=== PATIENT | female | born 1960 | race Caucasian/White ===

== ENCOUNTER 2024-12-05 03:09 | Inpatient (IN) | payer OTHER ==
[~2024-12-05] VITALS: Ht 160 cm; Wt 69.5 kg
[2024-12-05] VITALS (41 sets, daily range): BP systolic 95–128; BP diastolic 24–53; PULSE 75–94; RESP 13–24; TEMP 98.9–100.9; O2SAT 89–98
--- NOTE | 2024-12-05 03:32 | ECG ---
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
--- NOTE | 2024-12-05 03:59 | ED.PDOC ---
History of Present Illness HPI Comments 64 year old female presents to the ED via EMS with a chief complaint of generalized weakness onset 1 day. Per EMS, patient has been experiencing generalized weakness for the past day, was walking to the bathroom when she experienced a near syncopal episode, was assisted to the ground by and 911 was called. She was treated for c. diff, finished antibiotics 10 days ago, is still experiencing abdominal pain as well as diarrhea. She continues to take her blood pressure medication. reports blood pressure has been low at home. Upon EMS arrival BP was 88/55, NS 500 ccs IV was given improved BP to 105/75, blood sugar was 122, O2 sat was 88-90% RA, placed to 2L and O2 improved to 98%. PMHx CVA, HTN, HLD, ovarian and lung cancer. No other symptoms or modifying factors present at this time. Chief Complaint: General Weakness Time Seen by MD: 03:30 Reviewed Notes: Medications, Allergies Allergies: Coded Allergies: NO KNOWN ALLERGIES (Unverified , 12/05/24) Home Meds Reported Medications Montelukast Sodium (MONTELUKAST SODIUM) 10 Mg Tab, 1 TAB PO DAILY 12/05/24 Losartan Potassium (Losartan Potassium) 25 Mg Tab, 1 TAB PO DAILY 12/05/24 Amlodipine Besylate (Amlodipine Besylate) 2.5 Mg Tab, 1 TAB PO DAILY 12/05/24 Famotidine (Famotidine) 40 Mg Tab, 1 TAB PO BID 12/05/24 Gabapentin (Gabapentin) 300 Mg Cap, CAP PO 12/05/24 Warfarin Sodium (Warfarin Sodium) 2.5 Mg Tab, TAB PO 12/05/24 Rosuvastatin Calcium (Rosuvastatin Calcium) 5 Mg Tab, 1 TAB PO DAILY 12/05/24 Information Source: Patient, Emergency Med Personnel Mode of Arrival: EMS Severity: Moderate Duration: Since onset Prehospital treatment: IVF, Oxygen Vital Signs Vital Signs Date Time Temp Pulse Resp B/P (MAP) Pulse Ox O2 Delivery O2 Flow Rate FiO2 12/05/24 10:00 119/55 12/05/24 10:00 99.0 80 20 96 99.0 12/05/24 08:00 Nasal Cannula* 2 28 Physical Exam General: Awake,lethargic. NAD Skin: Skin in warm, dry and intact. Appropriate color for ethnicity. HEENT: The head is normocephalic and atraumatic. Conjunctivae are clear without exudates or hemorrhage. Sclera is non-icteric. EOM are intact. No signs of nystagmus. Eyelids are normal in appearance without swelling or lesions. Oral mucosa is pink and moist Neck: The neck is supple with normal range of motion. No JVD. Cardiac: Heart rate and rhythm are normal. No murmurs, gallops, or rubs are auscultated. Respiratory: No signs of respiratory distress. Lung sounds are clear in all lobes bilaterally without rales, rhonchi, or wheezes. Abdominal: Abdomen is soft, Generally-tender without distention. Bowel sounds are present and normoactive in all four quadrants. Extremities: Upper and lower extremities are atraumatic in appearance without deformity or edema. Review of Systems: REVIEW OF SYSTEMS: No fever, no chills, or fatigue HEENT: No sore throat, no earache, no congestion, no neck pain. Cardiac: No chest pain. No palpitations. Lungs: No shortness of breath, no cough. GI: No nausea, no vomiting, no diarrhea, no constipation, no abdominal pain : No dysuria, frequency, or urgency. No hematuria. Musculoskeletal: No joint pain , no joint swelling, no extremity edema. Skin: No rash, no itching. Neuro: No headache, no dizziness, no weakness Past Medical History PAST MEDICAL HISTORY: Cancer (ovarian, lung), CVA, High Lipids, HTN Surgical History: Denies all surgeries BEVERAGE HOST History: No Pertinent BEVERAGE HOST History Family History Family History: Reviewed,noncontributory to illness, No family hx of Cancer, No family hx of DM, No family hx of Heart mega, No family hx of HTN, No family hx ofKidney mega, No family hx of Liver mega, No family hx of Lung mega, No family hx of Stroke Social History Smoker: Non-Smoker Alcohol: Denies ETOH Use Drugs: Denies Drug Use Lives In: Home Was a procedure done? Was a procedure done?: No EKG EKG : Pulse Rate (adult): 202 Cardiac Rhythm: NSR (89 bpm) Differential Dx Considerations may include: Differential diagnoses considered include but are not limited to hypovolemia, vasovagal, cardiac structural disease, arrhythmia, acute coronary syndrome, orthostasis, pulmonary embolism, dissection, seizure, basilar stroke, other. X-Ray, Labs, Meds, VS Vital Signs Date Time Temp Pulse Resp B/P (MAP) Pulse Ox O2 Delivery O2 Flow Rate FiO2 12/05/24 10:00 119/55 12/05/24 10:00 99.0 80 20 119/55 (76) 96 99.0 12/05/24 09:45 81 20 118/49 (72) 98 12/05/24 09:30 88 20 106/48 (67) 96 12/05/24 09:15 87 20 106/42 (63) 95 12/05/24 09:00 89 20 103/47 (65) 96 12/05/24 09:00 103/47 12/05/24 08:45 84 18 101/44 (63) 96 12/05/24 08:30 84 19 104/46 (65) 98 12/05/24 08:15 85 18 91/37 (55) 95 12/05/24 08:00 90 19 97 Nasal Cannula* 2 28 12/05/24 08:00 99.7 90 19 111/52 (71) 97 99.7 12/05/24 08:00 87 12/05/24 08:00 111/52 12/05/24 07:45 85 19 102/38 (59) 98 12/05/24 07:30 85 19 125/43 (70) 99 12/05/24 07:00 127/43 12/05/24 06:40 93/43 12/05/24 06:35 91/39 12/05/24 06:30 83/40 12/05/24 06:30 86 18 91/39 (56) 98 12/05/24 06:17 95 18 81/47 (58) 97 12/05/24 05:00 90 14 95/44 (61) 97 12/05/24 04:45 83 18 96/40 (58) 97 12/05/24 04:30 90 17 93/38 (56) 96 12/05/24 04:15 84 17 88/34 (52) 94 12/05/24 04:10 85 95 Nasal Cannula* 2 28 12/05/24 04:05 98.9 85 18 91/43 (59) 95 98.9 12/05/24 03:59 202 12/05/24 03:24 89 12/05/24 03:20 97.7 82 18 100/47 (64) 96 97.7 Lab Test 12/05/24 07:00 12/05/24 04:51 12/05/24 03:57 12/05/24 03:56 Range/Units Troponin I High Sensitivity 8 6 6 </=34 ng/L White Blood Count 12.5 H 4.4-10.8 10^3/uL Red Blood Count 3.39 L 4.0-5.20 10^6/uL Hemoglobin 10.5 L 12.2-16.2 g/dL Hematocrit 31.2 L 36.0-46.0 % Mean Corpuscular Volume 92.1 80.0-100.0 fL Mean Corpuscular Hemoglobin 30.9 28.0-32.0 pg Mean Corpuscular Hemoglobin Concent 33.6 32.0-36.0 g/dL Red Cell Distribution Width 16.8 H 11.8-14.3 % Platelet Count 235 140-450 10^3/uL Mean Platelet Volume 8.2 6.9-10.8 fL Neutrophils (%) (Auto) 79.1 37.0-80.0 % Lymphocytes (%) (Auto) 9.6 L 10.0-50.0 % Monocytes (%) (Auto) 11.0 0.0-12.0 % Eosinophils (%) (Auto) 0.3 0.0-7.0 % Basophils (%) (Auto) 0.0 0.0-2.0 % Neutrophils # (Auto) 9.9 H 1.6-8.6 10 ^3/uL Lymphocytes # (Auto) 1.2 0.4-5.4 10 ^3/uL Monocytes # (Auto) 1.4 H 0-1.3 10 ^3/uL Eosinophils # (Auto) 0 0-0.8 10 ^3/uL Basophils # (Auto) 0 0-0.2 10 ^3/uL Nucleated Red Blood Cells 0.0 % Sodium Level 140 136-145 mmol/L Potassium Level 3.4 L 3.5-5.1 mmol/L Chloride Level 106 98-107 mmol/L Carbon Dioxide Level 25 20-31 mmol/L Anion Gap 9 5-15 Blood Urea Nitrogen 14 9-23 mg/dL Creatinine 1.00 0.550-1.02 mg/dL Glomerular Filtration Rate Calc 62 >90 mL/min BUN/Creatinine Ratio 14.0 10.0-20.0 Serum Glucose 104 74-106 mg/dL Lactic Acid Level 1.0 0.4-2.0 mmol/L Calcium Level 8.8 8.7-10.4 mg/dL Magnesium Level 1.6 1.6-2.6 mg/dL Total Bilirubin 0.3 0.2-1.0 mg/dL Aspartate Amino Transferase (AST) 13 13-40 U/L Alanine Aminotransferase (ALT) 15 7-40 U/L Alkaline Phosphatase 126 H 46-116 U/L B-Type Natriuretic Peptide 38.53 0-100 pg/mL Total Protein 5.9 5.7-8.2 g/dL Albumin 3.8 3.2-4.8 g/dL Lipase 23 12-53 U/L Creatine Kinase 16 L 34-145 U/L Current Medications Medications (Trade) Dose Ordered Sig/Rene Route Start Time Stop Time Status Last Admin Sodium Chloride 500 ml @ 500 mls/hr Q1H ONCE IV 12/05/24 03:45 12/05/24 04:44 DC 12/05/24 04:14 Sodium Chloride 1,000 ml @ 1,000 mls/hr Q1H ONCE IV 12/05/24 05:00 12/05/24 05:59 DC 12/05/24 05:13 Sodium Chloride 1,000 ml @ 130 mls/hr Q7H42M ONCE IV 12/05/24 05:00 12/05/24 12:41 DC 12/05/24 05:00 Vancomycin HCl 200 ml @ 200 mls/hr ONCE ONCE IV 12/05/24 05:00 12/05/24 05:59 DC 12/05/24 05:31 Piperacillin Sod/ Tazobactam Sod 100 ml @ 100 mls/hr ONCE ONCE IV 12/05/24 05:15 12/05/24 06:14 DC 12/05/24 08:04 Norepinephrine Bitartrate 250 ml @ 3.75 mls/hr Q24H IV 12/05/24 05:40 12/05/24 06:30 Time of 1ST Reevaluation: 04:00 Reevaluation 1ST: Unchanged Patient Education/Counseling: Diagnosis, Treatment, Prognosis Family Education/Counseling: No Family Present Departure 1 Departure Time of Disposition: 06:00 Impression: Primary Impression: Hypotension Additional Impression: General weakness Disposition: 09 ADMITTED INPATIENT Condition: Serious Comments Treatment initiated in the emergency department. Patient is stabilized. Gary dobbs admitted for further treatment, evaluation and monitoring. Critical Care Note Critical Care Time?: No Stability Stability form required: No I personally scribed for CHEIKH REYES MD ([email or web address]) on 12/05/24 at 03:59. Electronically submitted by Jordyn Centeno ([email or web address]). CHEIKH REYES MD Dec 05, 2024 03:59
[2024-12-05 04:11] LABS: Basophils # (auto) 0 10 ^3/uL (0-0.2); Eosinophils # (auto) 0 10 ^3/uL (0-0.8); Eosinophils % (auto) 0.3 % (0.0-7.0); Hematocrit 31.2 % (36.0-46.0); Hemoglobin 10.5 g/dL (12.2-16.2); Lymphocytes # (auto) 1.2 10 ^3/uL (0.4-5.4); Lymphocytes % (auto) 9.6 % (10.0-50.0); Mean Corpuscular Hemoglobin 30.9 pg (28.0-32.0); Mean Corpuscular Hgb Conc. 33.6 g/dL (32.0-36.0); Mean Corpuscular Volume 92.1 fL (80.0-100.0); Monocytes # (auto) 1.4 10 ^3/uL (0-1.3); Neutrophils # (auto) 9.9 10 ^3/uL (1.6-8.6); Neutrophils % (auto) 79.1 % (37.0-80.0); Platelet Count (auto) 235 10^3/uL (140-450); Red Blood Cells 3.39 10^6/uL (4.0-5.20); Red Cell Distribution Width 16.8 % (11.8-14.3); White Blood Cell 12.5 10^3/uL (4.4-10.8)
[2024-12-05] MEDS: SODIUM CHLORIDE 0.9% 500 ML IV ONE (04:14)
--- NOTE | 2024-12-05 04:25 | DVH ---
EXAM: XY CHEST XRAY 1 VIEW HISTORY: Generalized weakness COMPARISON: None TECHNIQUE: Portable AP view of the chest was performed. FINDINGS: Head and neck tissues partially obscure the right lung apex. Lung volumes are low. No pneumothorax, c onsolidative infiltrates, or pulmonary edema. The heart is not enlarged. IMPRESSION: No acute intrathoracic process.
[2024-12-05 04:32] LABS: Alanine Aminotransferase 15 U/L (7-40); Albumin 3.8 g/dL (3.2-4.8); Anion Gap 9 (5-15); Aspartate Aminotransferase 13 U/L (13-40); Bilirubin, Total 0.3 mg/dL (0.2-1.0); Blood Urea Nitrogen 14 mg/dL (9-23); Calcium 8.8 mg/dL (8.7-10.4); Carbon Dioxide 25 mmol/L (20-31); Chloride 106 mmol/L (98-107); Glucose 104 mg/dL (74-106); Lipase 23 U/L (12-53); Sodium 140 mmol/L (136-145); Total Protein 5.9 g/dL (5.7-8.2)
[2024-12-05 04:36] LABS: Alkaline Phosphatase 126 U/L (46-116); Magnesium 1.6 mg/dL (1.6-2.6); Potassium 3.4 mmol/L (3.5-5.1)
[2024-12-05] MEDS: SODIUM CHLORIDE 0.9% 1,000 ML IV ONE ×2 (05:00→05:13)
[2024-12-05] MEDS ORDERED: cefTRIAXone 1GM/50ML D5W 50 ML IV ONE (05:00)
[2024-12-05] MEDS: VANCOMYCIN 1GM/200ML PM 200 ML IV ONE (05:31)
[2024-12-05] MEDS: NOREPINEPHRINE 8 MG/250ML KIT 250 ML IV SCH (06:30)
[2024-12-05] MEDS: IOHEXOL 300 MG/ML 100ML BOTTLE IJ ONE (06:31)
--- NOTE | 2024-12-05 06:44 | DVH ---
EXAM: CT Abdomen and Pelvis With Intravenous Contrast CLINICAL INDICATION: Abdominal pain, diarrhea, history C diff TECHNIQUE: Axial computed tomography images of the abdomen and pelvis with intravenous contrast. is CT exam was performed using one or more of the following dose reduction techniques: automated exp osure control, adjustment of the mA and/or kV according to patient size, and/or use of iterative migel nstruction technique. CONTRAST: COMPARISON: None FINDINGS: ARTIFACTS: Beam hardening artifacts. LUNG BASES: Unremarkable. No mass. No consolidation. MEDIASTINUM: Small esophageal hiatal hernia. ABDOMEN: LIVER: Fatty infiltration of the liver. GALLBLADDER AND BILE DUCTS: Unremarkable. No calcified stones. No ductal dilation. PANCREAS: Unremarkable. No mass. No ductal dilation. SPLEEN: Unremarkable. No splenomegaly. ADRENALS: Unremarkable. No mass. KIDNEYS AND URETERS: Unremarkable. No solid mass. No hydronephrosis. STOMACH AND BOWEL: Mild fat stranding of the descending colon could be colitis. Fecal retention in the colon consistent with constipation. No bowel obstruction pneumoperitoneum. PELVIS: APPENDIX: No findings to suggest acute appendicitis. BLADDER: Unremarkable. No mass. REPRODUCTIVE: Unremarkable as visualized. ABDOMEN and PELVIS: INTRAPERITONEAL SPACE: See above. BONES/JOINTS: No acute fracture. No dislocation. SOFT TISSUES: Unremarkable. VASCULATURE: Scattered calcified atherosclerotic disease of aorta. No abdominal aortic aneurysm. LYMPH NODES: Unremarkable. No enlarged lymph nodes. OTHER FINDINGS: . . IMPRESSION: 1. Mild fat stranding of the descending colon could be colitis. 2. Small esophageal hiatal hernia. 3. Fecal retention in the colon consistent with constipation.
[2024-12-05] MEDS: PIPERACILLIN-TAZOB 3.375GM 100 ML IV ONE (08:04)
[2024-12-05] MEDS ORDERED: NITROGLYCERIN 0.4 MG SL TAB SL PRN (10:30)
[2024-12-05] MEDS ORDERED: ONDANSETRON HCL 4 MG/2 ML VIAL IV PRN (10:30)
[2024-12-05] MEDS ORDERED: VANCOMYCIN PER PHARMACY 0 MG IV SCH (10:30)
[2024-12-05] MEDS: SODIUM CHLORIDE 0.9% 1,000 ML IV SCH (10:30)
[2024-12-05] MEDS ORDERED: MORPHINE SULFATE INJ 2 MG/ml SYRG IV PRN (10:30)
[2024-12-05] MEDS ORDERED: WARF-110 PO (10:32)
[2024-12-05] MEDS ORDERED: FAMO40TA7 PO (10:32)
[2024-12-05] MEDS ORDERED: ROSU5TAB24 PO (10:32)
[2024-12-05] MEDS ORDERED: LOS25T PO (10:32)
[2024-12-05] MEDS ORDERED: AMLO1TAB21 PO (10:32)
[2024-12-05] MEDS ORDERED: GABA-1250 PO (10:32)
[2024-12-05] MEDS ORDERED: MONT-8 PO (10:33)
--- NOTE | 2024-12-05 10:42 | DVHHP2 ---
History of Present Illness Reason for Visit: Generalized weakness with hypotension History of Present Illness Spring Mars is a 64-year-old female with past medical history of hypertension, hyperlipidemia, CVA with left-sided weakness, ovarian cancer, lung cancer with right lobectomy in 2020 of May who presents to the ED with generalized weakness, hypotension, abdominal pain, and diarrhea. Patient reports that she finished her course of vancomycin p.o. for her C diff. Per RN at bedside, patient's spouse stated that they had given her blood pressure medications but did not check her blood pressure prior to her taking the medications. Patient denies any chest pain, shortness of breath, fever, chills, urinary symptoms, recent sick contacts, recent ingestion of spoiled food, or recent travels. Patient states that she was having diarrhea but resolved. Cardiovascular: HTN, hyperipidemia PHYSICIST SOLID EARTH: CVA Past Medical History Ovarian cancer Lung cancer Past Surgical History: Other (Right lobectomy May 2021) Family History: None Smoke: No ALCOHOL: none Drugs: None Lives: with Family Domestic Violence: Neg Review of Systems Constitutional: Yes: Weakness Gastrointestinal: Abdominal Pain, Diarrhea Allergies: Coded Allergies: NO KNOWN ALLERGIES (Unverified , 12/05/24) Medications Current Medications Medications Dose Ordered Sig/Rene Route Start Time Stop Time Status Last Admin Dose Admin Norepinephrine Bitartrate 250 ml @ 3.75 mls/hr Q24H IV 12/05/24 05:40 12/05/24 06:30 3.75 MLS/HR Sodium Chloride 1,000 ml @ 100 mls/hr Q10H IV 12/05/24 10:30 UNV Ondansetron HCl 4 mg Q4HP PRN IV 12/05/24 10:30 UNV Acetaminophen 650 mg Q6HP PRN PO 12/05/24 10:30 UNV Nitroglycerin 0.4 mg Q5MINP PRN SL 12/05/24 10:30 UNV Morphine Sulfate 2 mg Q30M PRN IV 12/05/24 10:30 UNV Vancomycin HCl 0 ml @ 0 mls/hr UD IV 12/05/24 10:30 UNV Piperacillin Sod/ Tazobactam Sod 100 ml @ 25 mls/hr Q8HR IV 12/05/24 14:00 UNV Exam Vital Signs Vital Signs Date Time Temp Pulse Resp B/P (MAP) Pulse Ox O2 Delivery O2 Flow Rate FiO2 12/05/24 10:00 99.0 80 20 119/55 (76) 96 99.0 12/05/24 08:00 Nasal Cannula* 2 28 General Appearance: Alert, Oriented X3, Cooperative, mild distress HEENT: Atraumatic, PERRLA, EOMI, Mucous membr. moist/pink Respiratory: Normal air movement Cardiovascular: Regular rate, Normal S1, Normal S2, No murmurs Abdominal: Normal bowel sounds, Soft, No tenderness, No hepatospenomegaly, No masses Extremities: No clubbing, No cyanosis, Normal pulses Skin: No significant lesion Neuro: Normal speech, Normal tone, Sensation intact Psych/Mental Status: Mental status NL, Mood NL Labs/Xrays Labs Test 12/05/24 07:00 12/05/24 03:57 12/05/24 03:56 Range/Units Troponin I High Sensitivity 8 </=34 ng/L White Blood Count 12.5 H 4.4-10.8 10^3/uL Red Blood Count 3.39 L 4.0-5.20 10^6/uL Hemoglobin 10.5 L 12.2-16.2 g/dL Hematocrit 31.2 L 36.0-46.0 % Mean Corpuscular Volume 92.1 80.0-100.0 fL Mean Corpuscular Hemoglobin 30.9 28.0-32.0 pg Mean Corpuscular Hemoglobin Concent 33.6 32.0-36.0 g/dL Red Cell Distribution Width 16.8 H 11.8-14.3 % Platelet Count 235 140-450 10^3/uL Mean Platelet Volume 8.2 6.9-10.8 fL Neutrophils (%) (Auto) 79.1 37.0-80.0 % Lymphocytes (%) (Auto) 9.6 L 10.0-50.0 % Monocytes (%) (Auto) 11.0 0.0-12.0 % Eosinophils (%) (Auto) 0.3 0.0-7.0 % Basophils (%) (Auto) 0.0 0.0-2.0 % Neutrophils # (Auto) 9.9 H 1.6-8.6 10 ^3/uL Lymphocytes # (Auto) 1.2 0.4-5.4 10 ^3/uL Monocytes # (Auto) 1.4 H 0-1.3 10 ^3/uL Eosinophils # (Auto) 0 0-0.8 10 ^3/uL Basophils # (Auto) 0 0-0.2 10 ^3/uL Nucleated Red Blood Cells 0.0 % Sodium Level 140 136-145 mmol/L Potassium Level 3.4 L 3.5-5.1 mmol/L Chloride Level 106 98-107 mmol/L Carbon Dioxide Level 25 20-31 mmol/L Anion Gap 9 5-15 Blood Urea Nitrogen 14 9-23 mg/dL Creatinine 1.00 0.550-1.02 mg/dL Glomerular Filtration Rate Calc 62 >90 mL/min BUN/Creatinine Ratio 14.0 10.0-20.0 Serum Glucose 104 74-106 mg/dL Lactic Acid Level 1.0 0.4-2.0 mmol/L Calcium Level 8.8 8.7-10.4 mg/dL Magnesium Level 1.6 1.6-2.6 mg/dL Total Bilirubin 0.3 0.2-1.0 mg/dL Aspartate Amino Transferase (AST) 13 13-40 U/L Alanine Aminotransferase (ALT) 15 7-40 U/L Alkaline Phosphatase 126 H 46-116 U/L B-Type Natriuretic Peptide 38.53 0-100 pg/mL Total Protein 5.9 5.7-8.2 g/dL Albumin 3.8 3.2-4.8 g/dL Lipase 23 12-53 U/L Creatine Kinase 16 L 34-145 U/L EXAM: CT Abdomen and Pelvis With Intravenous Contrast CLINICAL INDICATION: Abdominal pain, diarrhea, history C diff TECHNIQUE: Axial computed tomography images of the abdomen and pelvis with intravenous contrast. This CT exam was performed using one or more of the following dose reduction techniques: automated exposure control, adjustment of the mA and/or kV according to patient size, and/or use of iterative reconstruction technique. CONTRAST: COMPARISON: None FINDINGS: ARTIFACTS: Beam hardening artifacts. LUNG BASES: Unremarkable. No mass. No consolidation. MEDIASTINUM: Small esophageal hiatal hernia. ABDOMEN: LIVER: Fatty infiltration of the liver. GALLBLADDER AND BILE DUCTS: Unremarkable. No calcified stones. No ductal dilation. PANCREAS: Unremarkable. No mass. No ductal dilation. SPLEEN: Unremarkable. No splenomegaly. ADRENALS: Unremarkable. No mass. KIDNEYS AND URETERS: Unremarkable. No solid mass. No hydronephrosis. STOMACH AND BOWEL: Mild fat stranding of the descending colon could be colit is. Fecal retention in the colon consistent with constipation. No bowel obstruction pneumoperitoneum. PELVIS: APPENDIX: No findings to suggest acute appendicitis. BLADDER: Unremarkable. No mass. REPRODUCTIVE: Unremarkable as visualized. ABDOMEN and PELVIS: INTRAPERITONEAL SPACE: See above. BONES/JOINTS: No acute fracture. No dislocation. SOFT TISSUES: Unremarkable. VASCULATURE: Scattered calcified atherosclerotic disease of aorta. No abdominal aortic aneurysm. LYMPH NODES: Unremarkable. No enlarged lymph nodes. OTHER FINDINGS: . . IMPRESSION: 1. Mild fat stranding of the descending colon could be colitis. 2. Small esophageal hiatal hernia. 3. Fecal retention in the colon consistent with constipation. EXAM: XY CHEST XRAY 1 VIEW HISTORY: Generalized weakness COMPARISON: None TECHNIQUE: Portable AP view of the chest was performed. FINDINGS: Head and neck tissues partially obscure the right lung apex. Lung volumes are low. No pneumothorax, consolidative infiltrates, or pulmonary edema. The heart is not enlarged. IMPRESSION: No acute intrathoracic process. Assessment/Plan Assessment/Plan Assessment Leukocytosis rule out sepsis Anemia Hypokalemia Hypovolemic shock Colitis Small esophageal hiatal hernia Constipation History of hypertension History of hyperlipidemia History of CVA with left-sided deficits on warfarin History of ovarian cancer History of lung cancer History of right lobectomy in May of 2021 Plan Admit to ICU Vasopressor Keep maps greater than 65 IV antibiotics-Zosyn plus vancomycin NS 2.5 L given in ED CK CT abdomen and pelvis Troponin negative x3 Chest x-ray noted UA COVID test Test Mag level Mag Lactic BNP EKG Antiemetics Pain management Coumadin protocol Home medications reconciled DVT prophylaxis-patient on warfarin PUD prophylaxis-famotidine, continue home medication Discussed plan of care with patient and nurse Patient takes tagrisso and non formulary with pharmacy Plan discussed with: Patient My Orders Orders - ALAINA MARTINEZ JUNIOR BRAND MANAGER Procedure Category Date Status Time Admit ADMIT 12/05/24 Transmitted 10:23 Allergies MICK 12/05/24 In Process 10:23 Code Status CODE 12/05/24 Transmitted 10:23 Sodium Chloride 0.9% PHA 12/05/24 Logged 10:30 Ondansetron Hcl PHA 12/05/24 Logged (Zofran) 10:30 Complete Blood Count LAB 12/06/24 Verified 04:00 Comprehensive LAB 12/06/24 Verified Metabolic Panel 04:00 Cardiac DIET 12/05/24 Transmitted Diet-2gna,Lofat,Lochol Lunch Acetaminophen Tablet PHA 12/05/24 Logged (Tylenol Tablet) 10:30 Nitroglycerin PHA 12/05/24 Logged Sublingual (Ntrostat 10:30 Morphine Sulfate PHA 12/05/24 Logged Injection 10:30 Stat Ekg For Chest MICK 12/05/24 In Process Pain 10:23 Notify Of Changes MICK 12/05/24 In Process From Base 10:23 Nylon Mender For MICK 12/05/24 In Process 24 Hours 10:23 Emergency Dysrhythmia MICK 12/05/24 In Process Protocol 10:23 Rhythm Strips Once MICK 12/05/24 In Process Every Shift 10:23 Oxygen By Nasal RT 12/05/24 Transmitted Cannula 10:23 Potassium Er Tablet PHA 12/05/24 Logged (Klor-Con Tablet) 10:30 Vancomycin Per PHA 12/05/24 Logged Pharmacy 10:30 Piperacillin-Tazob PHA 12/05/24 Logged 3.375gm (Zosyn 3.375g 14:00 Gabapentin Capsule PHA 12/05/24 Verified (Neurontin Capsule) 14:00 Losartan Tablet PHA 12/06/24 Verified (Cozaar Tablet) 10:00 Warfarin Sodium PHA 12/06/24 Verified (Coumadin) 10:00 (Nf) Amlodipine PHA 12/06/24 Verified Besylate 10:00 (Nf) Famotidine PHA 12/05/24 Verified 22:00 (Nf) Rosuvastatin PHA 12/06/24 Verified Calcium 10:00 Montelukast Tablet PHA 12/06/24 Verified (Singulair Tablet) 10:00 Date of Service: Dec 05, 2024 Billing Provider: ALAINA MARTINEZ Common Visit Codes: [id number] INP/OBS CARE (HIGH) ALAINA MARTINEZ JUNIOR BRAND MANAGER Dec 05, 2024 10:42
[2024-12-05 11:33] LABS: COVID19 ANTIGEN SOFIA FIA NEGATIVE (NEGATIVE); Rapid Influenza A Negative (Negative); Rapid Influenza B Negative (Negative)
[2024-12-05 12:03] LABS: Urine Bacteria None Seen /hpf (None Seen)
[2024-12-05 12:12] LABS: Urine Blood Negative /uL (Negative); Urine Clarity Clear (Clear); Urine Color Light-Yellow (Yellow); Urine Protein, UAD Negative (Negative); Urine Specific Gravity 1.031 (1.001-1.035); Urine Squamous Epithelial Cell None Seen /hpf (<5); Urine Urobilinogen Normal (Negative); Urine WBC 1 /HPF (0-5); Urine pH 5.5 (5.0-9.0)
[2024-12-05] MEDS: GABAPENTIN 300 MG CAP PO SCH (13:32)
[2024-12-05] MEDS: POTASSIUM CHL 20 Meq TABLET PO ONE (13:32)
[2024-12-05] MEDS: PIPERACILLIN-TAZOB 3.375GM 100 ML IV SCH (13:33)
[2024-12-05 13:59] LABS: INR 2.75 (0.9-1.15); Prothrombin Time 26.4 sec (9.3-11.8)
[2024-12-05] MEDS: ACETAMINOPHEN 325 MG TAB PO PRN (15:36)
[2024-12-05] MEDS: WARFARIN SODIUM 2 MG TAB PO ONE (18:02)
[2024-12-05] MEDS: FAMOTIDINE 20 MG TAB PO SCH (21:10)
[2024-12-05] MEDS: VANCOMYCIN 1GM/200ML PM 200 ML IV SCH (21:10)
[2024-12-06] VITALS (107 sets, daily range): BP systolic 65–156; BP diastolic 29–70; PULSE 70–95; RESP 10–28; TEMP 98.2–100.5; O2SAT 87–100
[2024-12-06 04:28] LABS: Basophils # (auto) 0.1 10 ^3/uL (0-0.2); Basophils % (auto) 0.8 % (0.0-2.0); Eosinophils # (auto) 0.1 10 ^3/uL (0-0.8); Eosinophils % (auto) 0.6 % (0.0-7.0); Hematocrit 32.6 % (36.0-46.0); Hemoglobin 10.9 g/dL (12.2-16.2); Lymphocytes # (auto) 1.3 10 ^3/uL (0.4-5.4); Lymphocytes % (auto) 7.7 % (10.0-50.0); Mean Corpuscular Hemoglobin 30.7 pg (28.0-32.0); Mean Corpuscular Hgb Conc. 33.4 g/dL (32.0-36.0); Mean Corpuscular Volume 91.9 fL (80.0-100.0); Monocytes # (auto) 1.8 10 ^3/uL (0-1.3); Monocytes % (auto) 10.4 % (0.0-12.0); Neutrophils # (auto) 13.8 10 ^3/uL (1.6-8.6); Neutrophils % (auto) 80.5 % (37.0-80.0); Platelet Count (auto) 238 10^3/uL (140-450); Red Blood Cells 3.54 10^6/uL (4.0-5.20); Red Cell Distribution Width 16.6 % (11.8-14.3); White Blood Cell 17.1 10^3/uL (4.4-10.8)
[2024-12-06 04:52] LABS: Alanine Aminotransferase 14 U/L (7-40); Albumin 3.6 g/dL (3.2-4.8); Anion Gap 12 (5-15); Aspartate Aminotransferase 14 U/L (13-40); BUN/Creatinine Ratio 6.8 (10.0-20.0); Calcium 8.9 mg/dL (8.7-10.4); Glucose 99 mg/dL (74-106); Sodium 139 mmol/L (136-145)
[2024-12-06 04:53] LABS: Bilirubin, Total 0.6 mg/dL (0.2-1.0)
[2024-12-06 04:55] LABS: Partial Thromboplastin Time 64.3 SEC (24.5-34.5); Prothrombin Time 38.2 sec (9.3-11.8)
[2024-12-06 04:58] LABS: Alkaline Phosphatase 121 U/L (46-116); Blood Urea Nitrogen 5 mg/dL (9-23); Carbon Dioxide 19 mmol/L (20-31); Chloride 108 mmol/L (98-107); Magnesium 1.5 mg/dL (1.6-2.6); Total Protein 5.5 g/dL (5.7-8.2)
[2024-12-06 05:08] LABS: INR 4.15 (0.9-1.15)
[2024-12-06] MEDS: POTASSIUM EFFERVESENT TAB 25 MEQ PO ONE (06:57)
[2024-12-06] MEDS: MAGNESIUM SULFATE 1GM/100ML 100 ML IV ONE ×3 (06:57→17:21)
[2024-12-06] MEDS: MONTELUKAST SODIUM 10 MG TAB PO SCH (09:21)
--- NOTE | 2024-12-06 09:52 | DVHPN2 ---
Subjective Patient reporting history of diarrhea, completing course of p.o. vancomycin for C diff. Reviewed: Care Plan, H&P, Labs, Medications, Previous Orders, Radiology Changes from previous H/P or p: No Changes General: Per HPI Gastrointestinal: Abdominal Pain, Diarrhea Objective Vitals Vital Signs Date Time Temp Pulse Resp B/P (MAP) Pulse Ox O2 Delivery O2 Flow Rate FiO2 12/06/24 09:08 98.2 98.2 12/06/24 09:00 76 18 99 12/06/24 08:00 Nasal Cannula* 2 28 Intake/Output Intake and Output 12/06/24 07:00 Intake Total 3480.00 ml Output Total 3200 ml Balance 280.00 ml Intake Oral 300 ml IV Total 3180.00 ml Output Urine Total 3200 ml # Bowel Movements 2 General Appearance: Alert, Oriented X3, Cooperative, No acute distress HEENT: Atraumatic, PERRLA Lungs: Clear to auscultation, Normal air movement Cardiovascular: Normal S1, Normal S2 Abdomen: Normal bowel sounds, Soft, No tenderness, Other (Runs of paroxysmal atrial fibrillation) Musculoskeletal: Normal sensory function, Normal motor function Neuro: Normal gait, Normal speech Skin: Dry, Intact, Warm Psych/Mental Status: Mental status NL, Mood NL Medications Current Medications Medications Dose Ordered Sig/Rene Route Start Time Stop Time Status Last Admin Dose Admin Norepinephrine Bitartrate 250 ml @ 3.75 mls/hr Q24H IV 12/05/24 05:40 12/06/24 02:29 7.5 MLS/HR Ondansetron HCl 4 mg Q4HP PRN IV 12/05/24 10:30 Acetaminophen 650 mg Q6HP PRN PO 12/05/24 10:30 12/06/24 07:59 650 MG Nitroglycerin 0.4 mg Q5MINP PRN SL 12/05/24 10:30 Morphine Sulfate 2 mg Q30M PRN IV 12/05/24 10:30 Gabapentin 300 mg TID PO 12/05/24 14:00 12/06/24 05:34 300 MG Warfarin Sodium 2.5 mg DAILY PO 12/06/24 10:00 UNV Famotidine 40 mg BID PO 12/05/24 22:00 12/06/24 09:20 40 MG Atorvastatin Calcium 20 mg HS PO 12/06/24 22:00 Montelukast Sodium 10 mg DAILY PO 12/06/24 10:00 12/06/24 09:21 10 MG Warfarin Sodium RX PROTOCOL PER PHARMACY PO 12/05/24 13:30 Vancomycin HCl 200 ml @ 200 mls/hr Q16H IV 12/05/24 21:00 12/05/24 21:10 200 MLS/HR Metronidazole 100 ml @ 100 mls/hr Q8HR IV 12/06/24 14:00 UNV Vancomycin HCl 500 mg QID PO 12/06/24 12:00 UNV Saccharomyces Boulardii 250 mg BID PO 12/06/24 10:00 UNV Potassium Chloride/Sodium Chloride 1,000 ml @ 100 mls/hr Q10H IV 12/06/24 09:45 UNV Laboratory Results Laboratory Tests 12/06/24 03:50 Chemistry Test 12/06/24 03:50 Albumin 3.6 g/dL (3.2-4.8) Calcium Level 8.9 mg/dL (8.7-10.4) Magnesium Level 1.5 mg/dL (1.6-2.6) L Total Protein 5.5 g/dL (5.7-8.2) L Coagulation Test 12/05/24 13:36 12/06/24 03:50 Prothrombin Time 26.4 sec (9.3-11.8) H 38.2 sec (9.3-11.8) H Prothrombin Time INR 2.75 (0.9-1.15) H 4.15 (0.9-1.15) *H Activated Partial Thromboplast Time 53.0 SEC (24.5-34.5) H 64.3 SEC (24.5-34.5) H LFT Test 12/06/24 03:50 Alanine Aminotransferase (ALT) 14 U/L (7-40) Alkaline Phosphatase 121 U/L (46-116) H Aspartate Amino Transferase (AST) 14 U/L (13-40) Total Bilirubin 0.6 mg/dL (0.2-1.0) Urinalysis Test 12/05/24 12:02 Urine Color Light-yellow (Yellow) Urine Clarity Clear (Clear) Urine pH 5.5 (5.0-9.0) Urine Specific [place] 1.031 (1.001-1.035) Urine Protein Negative (Negative) Urine Ketones Negative (Negative) Urine Blood Negative /uL (Negative) Urine Nitrite Negative (Negative) Urine Bilirubin Negative (Negative) Urine Urobilinogen Normal mg/dL (Negative) Urine Leukocyte Esterase Negative /uL (Negative) Urine RBC <1 /hpf (0 - 4) Urine Microscopic WBC 1 /HPF (0-5) Urine Squamous Epithelial Cells None seen /hpf (<5) Urine Bacteria None seen /hpf (None Seen) Urine Glucose Normal mg/dL (Normal) Labs and/or images reviewed: Labs reviewed by me, Image(s) reviewed by me Assessment/Plan Assessment/Plan Impression: -sepsis secondary to probable colitis. Probable C diff colitis -septic shock -paroxysmal atrial fibrillation -history of CVA with current anticoagulation with Coumadin -history of lung cancer -dyslipidemia -acute hypoxic respiratory failure -hypomagnesemia -hypokalemia Plan: -events patient continues to be on norepinephrine drip, currently at 2 micrograms/minute. Patient also with electrolyte imbalance. Continues to have mucoid stools -change antibiotics to vancomycin 500 mg p.o. 4 times a day, IV Flagyl 500 mg 3 times a day. -Add Florastor 250 mg p.o. b.i.d. -potassium magnesium replacement -continue vasopressor therapy -normal saline bolus of 500 mL -change IV fluids to 0.9 normal saline with 40 mEq of potassium chloride at 100 mL/hour -repeat potassium magnesium today, a.m. labs -long discussion made with the patient, family was bedside. All questions answered. -given patient's paroxysmal atrial fibrillation, septic shock patient is unstable to transfer to [facility] Critical care time spent with patient discussing and formulating plan of care: 90 minutes. This does not include time spent performing procedures. This medical document was created using an electronic medical record system with [employer] dictation system. Although this document has been carefully reviewed, there may still be some phonetic and typographical errors. These areas are purely typographical due to imperfections of the software programs, and do not reflect any compromise in the patient's medical care. Plan discussed with: Patient, Spouse, Other (RN) My Orders Orders - SHAHIDA ROSS NP Procedure Category Date Status Time * Auto Bumper Mechanic CONS 12/06/24 Transmitted Consult Metronidazole PHA 12/06/24 Logged 500mg/100ml (Flagyl 14:00 Vancomycin Po PHA 12/06/24 Logged (Vancomycin 12:00 Florastor (S. PHA 12/06/24 Logged Reema) (Florastor) 10:00 Complete Blood Count LAB 12/07/24 Verified 04:00 Comprehensive LAB 12/07/24 Verified Metabolic Panel 04:00 Sod Chl 0.9%/ Kcl PHA 12/06/24 Logged 40meq 09:45 Sodium Chloride 0.9% PHA 12/06/24 Logged 09:45 Isolation Order ORDERS 12/06/24 Transmitted 09:42 Date of Service: Dec 06, 2024 Billing Provider: SHAHIDA ROSS NP Common Visit Codes: 21625-[id number] CARE 30-74 MIN, [id number] CARE-EACH +30MIN SHAHIDA ROSS NP Dec 06, 2024 09:52
[2024-12-06] MEDS ORDERED: LOSARTAN POTASSIUM 25 MG TAB PO SCH (10:00)
[2024-12-06] MEDS ORDERED: WARFARIN SODIUM 2.5 MG TAB PO SCH (10:00)
[2024-12-06] MEDS ORDERED: amLODIPine BESYLATE 5 MG TAB PO SCH (10:00)
[2024-12-06] MEDS: FLORASTOR (S. BOULARDII) 250 MG CAP PO SCH (10:57)
[2024-12-06] MEDS: SOD CHL 0.9%/ KCL 40MEQ 1,000 ML IV SCH (10:58)
[2024-12-06] MEDS: SODIUM CHLORIDE 0.9% 500 ML IV ONE (10:58)
[2024-12-06] MEDS ORDERED: VANCOMYCIN HCL 250 MG CAP PO SCH (12:00)
[2024-12-06] MEDS: VANCOMYCIN HCL 250 MG CAP PO SCH (13:14)
[2024-12-06 13:15] LABS: Potassium 3.7 mmol/L (3.5-5.1)
[2024-12-06 13:22] LABS: Magnesium 1.7 mg/dL (1.6-2.6)
[2024-12-06] MEDS: metroNIDAZOLE 500MG/100ML 100 ML IV SCH (14:50)
[2024-12-06] MEDS: KETOROLAC TROMETH 30 MG/ML 1ML VIAL IV ONE (18:19)
[2024-12-06] MEDS: ATORVASTATIN 20 MG TAB PO SCH (21:28)
[2024-12-07] VITALS (98 sets, daily range): BP systolic 95–152; BP diastolic 33–76; PULSE 64–91; RESP 11–34; TEMP 97.6–99.5; O2SAT 88–98
[2024-12-07 04:19] LABS: Basophils # (auto) 0.1 10 ^3/uL (0-0.2); Basophils % (auto) 0.3 % (0.0-2.0); Eosinophils # (auto) 0.3 10 ^3/uL (0-0.8); Eosinophils % (auto) 1.6 % (0.0-7.0); Hematocrit 35.8 % (36.0-46.0); Hemoglobin 11.6 g/dL (12.2-16.2); Lymphocytes # (auto) 1.6 10 ^3/uL (0.4-5.4); Lymphocytes % (auto) 8.9 % (10.0-50.0); Mean Corpuscular Hemoglobin 29.7 pg (28.0-32.0); Mean Corpuscular Hgb Conc. 32.3 g/dL (32.0-36.0); Monocytes # (auto) 1.7 10 ^3/uL (0-1.3); Monocytes % (auto) 9.6 % (0.0-12.0); Neutrophils # (auto) 14.2 10 ^3/uL (1.6-8.6); Neutrophils % (auto) 79.6 % (37.0-80.0); Platelet Count (auto) 292 10^3/uL (140-450); Red Cell Distribution Width 16.3 % (11.8-14.3); White Blood Cell 17.8 10^3/uL (4.4-10.8)
[2024-12-07 04:38] LABS: INR 3.93 (0.9-1.15); Partial Thromboplastin Time 66.9 SEC (24.5-34.5); Prothrombin Time 36.4 sec (9.3-11.8)
[2024-12-07 04:40] LABS: Alanine Aminotransferase 14 U/L (7-40); Albumin 3.6 g/dL (3.2-4.8); Anion Gap 13 (5-15); Aspartate Aminotransferase 14 U/L (13-40); Bilirubin, Total 0.3 mg/dL (0.2-1.0); Calcium 8.9 mg/dL (8.7-10.4); Glucose 89 mg/dL (74-106); Potassium 3.7 mmol/L (3.5-5.1); Sodium 141 mmol/L (136-145)
[2024-12-07 04:47] LABS: Alkaline Phosphatase 131 U/L (46-116); BUN/Creatinine Ratio 8.3 (10.0-20.0); Blood Urea Nitrogen < 5 mg/dL (9-23); Carbon Dioxide 19 mmol/L (20-31); Chloride 109 mmol/L (98-107); Total Protein 5.7 g/dL (5.7-8.2)
--- NOTE | 2024-12-07 09:58 | DVHPN2 ---
Subjective Patient reports that stools have decreased in frequency. Reviewed: Care Plan, H&P, Labs, Medications, Previous Orders, Radiology Changes from previous H/P or p: Changes General: Per HPI Gastrointestinal: Abdominal Pain, Diarrhea Objective Vitals Vital Signs Date Time Temp Pulse Resp B/P (MAP) Pulse Ox O2 Delivery O2 Flow Rate FiO2 12/07/24 08:00 78 12/07/24 08:00 18 94 Room Air* 0 21 12/07/24 06:45 127/49 (75) 12/07/24 04:00 98.1 98.1 Intake/Output Intake and Output 12/07/24 07:00 Intake Total 4000.00 ml Output Total 3300 ml Balance 700.00 ml Intake Oral 640 ml IV Total 3360.00 ml Output Urine Total 3300 ml # Bowel Movements 6 General Appearance: Alert, Oriented X3, Cooperative, No acute distress HEENT: Atraumatic, PERRLA Lungs: Clear to auscultation, Normal air movement Cardiovascular: Normal S1, Normal S2 Abdomen: Normal bowel sounds, Soft, No tenderness, Other (Runs of paroxysmal atrial fibrillation) Musculoskeletal: Normal sensory function, Normal motor function Neuro: Normal gait, Normal speech Skin: Dry, Intact, Warm Psych/Mental Status: Mental status NL, Mood NL Medications Current Medications Medications Dose Ordered Sig/Rene Route Start Time Stop Time Status Last Admin Dose Admin Norepinephrine Bitartrate 250 ml @ 3.75 mls/hr Q24H IV 12/05/24 05:40 12/07/24 06:03 11.25 MLS/HR Ondansetron HCl 4 mg Q4HP PRN IV 12/05/24 10:30 Acetaminophen 650 mg Q6HP PRN PO 12/05/24 10:30 12/07/24 06:07 650 MG Nitroglycerin 0.4 mg Q5MINP PRN SL 12/05/24 10:30 Morphine Sulfate 2 mg Q30M PRN IV 12/05/24 10:30 Gabapentin 300 mg TID PO 12/05/24 14:00 12/07/24 05:57 300 MG Warfarin Sodium 2.5 mg DAILY PO 12/06/24 10:00 UNV Famotidine 40 mg BID PO 12/05/24 22:00 12/06/24 21:28 40 MG Atorvastatin Calcium 20 mg HS PO 12/06/24 22:00 12/06/24 21:28 20 MG Montelukast Sodium 10 mg DAILY PO 12/06/24 10:00 12/06/24 09:21 10 MG Warfarin Sodium RX PROTOCOL PER PHARMACY PO 12/05/24 13:30 Metronidazole 100 ml @ 100 mls/hr Q8HR IV 12/06/24 14:00 12/07/24 05:56 100 MLS/HR Saccharomyces Boulardii 250 mg BID PO 12/06/24 10:00 12/06/24 21:27 250 MG Potassium Chloride/Sodium Chloride 1,000 ml @ 100 mls/hr Q10H IV 12/06/24 09:45 12/07/24 06:02 100 MLS/HR Vancomycin HCl 500 mg QID PO 12/06/24 13:05 12/07/24 05:57 500 MG Laboratory Results Laboratory Tests 12/07/24 03:46 Chemistry Test 12/06/24 12:35 12/07/24 03:46 Magnesium Level 1.7 mg/dL (1.6-2.6) Albumin 3.6 g/dL (3.2-4.8) Calcium Level 8.9 mg/dL (8.7-10.4) Total Protein 5.7 g/dL (5.7-8.2) Coagulation Test 12/07/24 03:46 Prothrombin Time 36.4 sec (9.3-11.8) H Prothrombin Time INR 3.93 (0.9-1.15) H Activated Partial Thromboplast Time 66.9 SEC (24.5-34.5) H LFT Test 12/07/24 03:46 Alanine Aminotransferase (ALT) 14 U/L (7-40) Alkaline Phosphatase 131 U/L (46-116) H Aspartate Amino Transferase (AST) 14 U/L (13-40) Total Bilirubin 0.3 mg/dL (0.2-1.0) Urinalysis Test 12/05/24 12:02 Urine Color Light-yellow (Yellow) Urine Clarity Clear (Clear) Urine pH 5.5 (5.0-9.0) Urine Specific [place] 1.031 (1.001-1.035) Urine Protein Negative (Negative) Urine Ketones Negative (Negative) Urine Blood Negative /uL (Negative) Urine Nitrite Negative (Negative) Urine Bilirubin Negative (Negative) Urine Urobilinogen Normal mg/dL (Negative) Urine Leukocyte Esterase Negative /uL (Negative) Urine RBC <1 /hpf (0 - 4) Urine Microscopic WBC 1 /HPF (0-5) Urine Squamous Epithelial Cells None seen /hpf (<5) Urine Bacteria None seen /hpf (None Seen) Urine Glucose Normal mg/dL (Normal) Microbiology Microbiology Date/Time Source Procedure Growth Status 12/05/24 21:30 Urine - [place] Urine Culture - Preliminary Resulted 12/05/24 15:28 Nose MRSA Screen - Final Complete 12/05/24 08:16 Stool Clostridium difficile Toxin Assay - Final Complete Labs and/or images reviewed: Labs reviewed by me, Image(s) reviewed by me Assessment/Plan Assessment/Plan Impression: -sepsis secondary to C diff colitis -septic shock -paroxysmal atrial fibrillation -history of CVA with current anticoagulation with Coumadin -history of lung cancer -dyslipidemia -acute hypoxic respiratory failure -hypomagnesemia -hypokalemia Plan: -events: Norepinephrine drip currently being weaned down. Stools have decreased. Potassium magnesium repleted. Patient was positive for C diff -continue antibiotics to vancomycin 500 mg p.o. 4 times a day, IV Flagyl 500 mg 3 times a day. -continue Florastor 250 mg p.o. b.i.d. -potassium magnesium replacement -continue vasopressor therapy -normal saline bolus of 500 mL -change IV fluids to 0.9 normal saline with 40 mEq of potassium chloride at 100 mL/hour -repeat potassium magnesium today, a.m. labs -long discussion made with the patient, family was bedside. All questions answered. -patient unstable to transfer to [facility]. Critical care time spent with patient discussing and formulating plan of care: 40 minutes. This does not include time spent performing procedures. This medical document was created using an electronic medical record system with [employer] dictation system. Although this document has been carefully reviewed, there may still be some phonetic and typographical errors. These areas are purely typographical due to imperfections of the software programs, and do not reflect any compromise in the patient's medical care. Plan discussed with: Patient, Other (RN) My Orders Orders - SHAHIDA ROSS NP Procedure Category Date Status Time Vancomycin Po PHA 12/06/24 In Process (Vancomycin 13:05 * Wool Presser CONS 12/07/24 Verified Consult Basic Metabolic Panel LAB 12/08/24 Verified 04:00 Complete Blood Count LAB 12/08/24 Verified 04:00 Date of Service: Dec 07, 2024 Billing Provider: SHAHIDA ROSS NP Common Visit Codes: 27011-[id number] CARE 30-74 MIN SHAHIDA ROSS NP Dec 07, 2024 09:58
--- NOTE | 2024-12-07 12:08 | DVHPN2 ---
Progress Note - Dictate Date Seen: Dec 07, 2024 Medical Necessity Reason Pt with a Central, PICC or Fol: Yes The following are medically ne: [place] Catheter Subjective Patient seen and examined Overnight events reviewed vital signs Vital Sign Date Time Temp Pulse Resp B/P (MAP) Pulse Ox O2 Delivery O2 Flow Rate FiO2 12/07/24 10:00 79 12/07/24 10:00 18 94 Room Air* 0 21 12/07/24 06:45 127/49 (75) 12/07/24 04:00 98.1 98.1 Total Intake and Output 12/06/24 12/06/24 12/07/24 15:00 23:00 07:00 Intake Total 1361.25 ml 1382.50 ml 1256.25 ml Output Total 1450 ml 1850 ml Balance 1361.25 ml -67.50 ml -593.75 ml medications Current Medications Medications Dose Ordered Sig/Rene Route Start Time Stop Time Status Last Admin Dose Admin Norepinephrine Bitartrate 250 ml @ 3.75 mls/hr Q24H IV 12/05/24 05:40 12/07/24 06:03 11.25 MLS/HR Ondansetron HCl 4 mg Q4HP PRN IV 12/05/24 10:30 Acetaminophen 650 mg Q6HP PRN PO 12/05/24 10:30 12/07/24 06:07 650 MG Nitroglycerin 0.4 mg Q5MINP PRN SL 12/05/24 10:30 Morphine Sulfate 2 mg Q30M PRN IV 12/05/24 10:30 Gabapentin 300 mg TID PO 12/05/24 14:00 12/07/24 05:57 300 MG Warfarin Sodium 2.5 mg DAILY PO 12/06/24 10:00 UNV Famotidine 40 mg BID PO 12/05/24 22:00 12/07/24 10:31 40 MG Atorvastatin Calcium 20 mg HS PO 12/06/24 22:00 12/06/24 21:28 20 MG Montelukast Sodium 10 mg DAILY PO 12/06/24 10:00 12/07/24 10:31 10 MG Warfarin Sodium RX PROTOCOL PER PHARMACY PO 12/05/24 13:30 Metronidazole 100 ml @ 100 mls/hr Q8HR IV 12/06/24 14:00 12/07/24 05:56 100 MLS/HR Saccharomyces Boulardii 250 mg BID PO 12/06/24 10:00 12/07/24 10:50 250 MG Potassium Chloride/Sodium Chloride 1,000 ml @ 100 mls/hr Q10H IV 12/06/24 09:45 12/07/24 06:02 100 MLS/HR Vancomycin HCl 500 mg QID PO 12/06/24 13:05 12/07/24 05:57 500 MG laboratory and microbiology Laboratory Tests 12/07/24 03:46 Test 12/07/24 03:46 Range/Units Serum Glucose 89 74-106 mg/dL Assessment/Plan Impression Hypotension C. diff colitis Shock Sepsis Patient seen and examined in ICU Events Low oxygen requirements On room air Hemodynamics improving, off Levophed today Positive for C. diff Covered with Flagyl Labs and imaging reviewed Management Supplemental oxygen as needed Titrate to maintain sats 90% or above Incentive spirometry Antibiotics, f/u cultures Continue treatment for C. diff Bronchodilators Monitor renal function Monitor electrolytes Supplement as needed DVT prophylaxis Critical care time 35 minutes Plan discussed with: Patient SONIA ROLLE MD Dec 07, 2024 12:08
[2024-12-08] VITALS (17 sets, daily range): BP systolic 98–150; BP diastolic 36–96; PULSE 73–102; RESP 10–22; TEMP 97.2–99; O2SAT 93–99
[2024-12-08 03:51] LABS: Basophils # (auto) 0.1 10 ^3/uL (0-0.2); Basophils % (auto) 0.7 % (0.0-2.0); Eosinophils # (auto) 0.3 10 ^3/uL (0-0.8); Eosinophils % (auto) 3.9 % (0.0-7.0); Hematocrit 37.8 % (36.0-46.0); Hemoglobin 12.3 g/dL (12.2-16.2); Lymphocytes # (auto) 1.7 10 ^3/uL (0.4-5.4); Lymphocytes % (auto) 21.4 % (10.0-50.0); Mean Corpuscular Hemoglobin 29.7 pg (28.0-32.0); Mean Corpuscular Hgb Conc. 32.6 g/dL (32.0-36.0); Monocytes # (auto) 0.9 10 ^3/uL (0-1.3); Monocytes % (auto) 11.6 % (0.0-12.0); Neutrophils % (auto) 62.4 % (37.0-80.0); Platelet Count (auto) 260 10^3/uL (140-450); Red Blood Cells 4.15 10^6/uL (4.0-5.20); Red Cell Distribution Width 16.6 % (11.8-14.3)
[2024-12-08 04:12] LABS: Anion Gap 9 (5-15); Calcium 9.4 mg/dL (8.7-10.4); Carbon Dioxide 24 mmol/L (20-31); Potassium 4.1 mmol/L (3.5-5.1); Sodium 142 mmol/L (136-145)
[2024-12-08 04:19] LABS: BUN/Creatinine Ratio 9.1 (10.0-20.0); Glucose 84 mg/dL (74-106)
[2024-12-08 04:32] LABS: Blood Urea Nitrogen 6 mg/dL (9-23); Chloride 109 mmol/L (98-107)
[2024-12-08 05:01] LABS: INR 2.7 (0.9-1.15); Partial Thromboplastin Time 62.6 SEC (24.5-34.5); Prothrombin Time 25.9 sec (9.3-11.8)
--- NOTE | 2024-12-08 13:29 | DVHPN2 ---
Progress Note - Dictate Date Seen: Dec 08, 2024 Medical Necessity Reason Pt with a Central, PICC or Fol: Yes The following are medically ne: [place] Catheter Subjective Patient seen and examined Overnight events reviewed vital signs Vital Sign Date Time Temp Pulse Resp B/P (MAP) Pulse Ox O2 Delivery O2 Flow Rate FiO2 12/08/24 13:00 97.2 95 18 135/85 (102) 99 97.2 12/08/24 08:00 Nasal Cannula* 2 28 Total Intake and Output 12/07/24 12/07/24 12/08/24 15:00 23:00 07:00 Intake Total 918.75 ml 1040 ml 900 ml Output Total 1450 ml 2400 ml Balance 918.75 ml -410 ml -1500 ml medications Current Medications Medications Dose Ordered Sig/Rene Route Start Time Stop Time Status Last Admin Dose Admin Ondansetron HCl 4 mg Q4HP PRN IV 12/05/24 10:30 Acetaminophen 650 mg Q6HP PRN PO 12/05/24 10:30 12/07/24 21:56 650 MG Nitroglycerin 0.4 mg Q5MINP PRN SL 12/05/24 10:30 Morphine Sulfate 2 mg Q30M PRN IV 12/05/24 10:30 Gabapentin 300 mg TID PO 12/05/24 14:00 12/08/24 05:54 300 MG Warfarin Sodium 2.5 mg DAILY PO 12/06/24 10:00 UNV Famotidine 40 mg BID PO 12/05/24 22:00 12/08/24 08:55 40 MG Atorvastatin Calcium 20 mg HS PO 12/06/24 22:00 12/07/24 21:55 20 MG Montelukast Sodium 10 mg DAILY PO 12/06/24 10:00 12/08/24 08:55 10 MG Warfarin Sodium RX PROTOCOL PER PHARMACY PO 12/05/24 13:30 Metronidazole 100 ml @ 100 mls/hr Q8HR IV 12/06/24 14:00 12/08/24 05:54 100 MLS/HR Saccharomyces Boulardii 250 mg BID PO 12/06/24 10:00 12/08/24 08:55 250 MG Potassium Chloride/Sodium Chloride 1,000 ml @ 100 mls/hr Q10H IV 12/06/24 09:45 12/08/24 04:28 100 MLS/HR Vancomycin HCl 500 mg QID PO 12/06/24 13:05 12/08/24 11:53 500 MG laboratory and microbiology Laboratory Tests 12/08/24 03:21 Test 12/08/24 03:21 Range/Units Serum Glucose 84 74-106 mg/dL Assessment/Plan Impression Hypotension C. diff colitis Shock Sepsis Patient seen and examined Events d/graded from ICU no new complaints Management Supplemental oxygen as needed Titrate to maintain sats 90% or above abx for C. diff Bronchodilators IVF diet as tolerated DVT prophylaxis f/up with hospitalist Plan discussed with: Other (pt) SONIA ROLLE MD Dec 08, 2024 13:29
--- NOTE | 2024-12-08 15:50 | DVHDS2 ---
Discharge Summary Date of Admission Dec 05, 2024 at 10:23 Date of Discharge: Dec 08, 2024 Admitting Diagnosis Sepsis Labs/Diagnostic Data: Laboratory Results Test 12/08/24 03:21 12/07/24 03:46 12/06/24 12:35 12/05/24 12:02 White Blood Count 8.0 10^3/uL (4.4-10.8) Red Blood Count 4.15 10^6/uL (4.0-5.20) Hemoglobin 12.3 g/dL (12.2-16.2) Hematocrit 37.8 % (36.0-46.0) Mean Corpuscular Volume 91.0 fL (80.0-100.0) Mean Corpuscular Hemoglobin 29.7 pg (28.0-32.0) Mean Corpuscular Hemoglobin Concent 32.6 g/dL (32.0-36.0) Red Cell Distribution Width 16.6 % (11.8-14.3) Platelet Count 260 10^3/uL (140-450) Mean Platelet Volume 8.2 fL (6.9-10.8) Neutrophils (%) (Auto) 62.4 % (37.0-80.0) Lymphocytes (%) (Auto) 21.4 % (10.0-50.0) Monocytes (%) (Auto) 11.6 % (0.0-12.0) Eosinophils (%) (Auto) 3.9 % (0.0-7.0) Basophils (%) (Auto) 0.7 % (0.0-2.0) Neutrophils # (Auto) 5.0 10 ^3/uL (1.6-8.6) Lymphocytes # (Auto) 1.7 10 ^3/uL (0.4-5.4) Monocytes # (Auto) 0.9 10 ^3/uL (0-1.3) Eosinophils # (Auto) 0.3 10 ^3/uL (0-0.8) Basophils # (Auto) 0.1 10 ^3/uL (0-0.2) Nucleated Red Blood Cells 0.0 % Prothrombin Time 25.9 sec (9.3-11.8) Prothrombin Time INR 2.70 (0.9-1.15) Activated Partial Thromboplast Time 62.6 SEC (24.5-34.5) Sodium Level 142 mmol/L (136-145) Potassium Level 4.1 mmol/L (3.5-5.1) Chloride Level 109 mmol/L (98-107) Carbon Dioxide Level 24 mmol/L (20-31) Anion Gap 9 (5-15) Blood Urea Nitrogen 6 mg/dL (9-23) Creatinine 0.66 mg/dL (0.550-1.02) Glomerular Filtration Rate Calc 97 mL/min (>90) BUN/Creatinine Ratio 9.1 (10.0-20.0) Serum Glucose 84 mg/dL (74-106) Calcium Level 9.4 mg/dL (8.7-10.4) Total Bilirubin 0.3 mg/dL (0.2-1.0) Aspartate Amino Transferase (AST) 14 U/L (13-40) Alanine Aminotransferase (ALT) 14 U/L (7-40) Alkaline Phosphatase 131 U/L (46-116) Total Protein 5.7 g/dL (5.7-8.2) Albumin 3.6 g/dL (3.2-4.8) Magnesium Level 1.7 mg/dL (1.6-2.6) Urine Color Light-yellow (Yellow) Urine Clarity Clear (Clear) Urine pH 5.5 (5.0-9.0) Urine Specific [place] 1.031 (1.001-1.035) Urine Protein Negative (Negative) Urine Ketones Negative (Negative) Urine Blood Negative /uL (Negative) Urine Nitrite Negative (Negative) Urine Bilirubin Negative (Negative) Urine Urobilinogen Normal mg/dL (Negative) Urine Leukocyte Esterase Negative /uL (Negative) Urine RBC <1 /hpf (0 - 4) Urine Microscopic WBC 1 /HPF (0-5) Urine Squamous Epithelial Cells None seen /hpf (<5) Urine Bacteria None seen /hpf (None Seen) Urine Glucose Normal mg/dL (Normal) Test 12/05/24 10:30 12/05/24 07:00 12/05/24 03:57 12/05/24 03:56 Influenza Type A Antigen Negative (Negative) Influenza Type B Antigen Negative (Negative) SARS-CoV-2 Antigen (Rapid) Negative (NEGATIVE) Troponin I High Sensitivity 8 ng/L (</=34) Lactic Acid Level 1.0 mmol/L (0.4-2.0) B-Type Natriuretic Peptide 38.53 pg/mL (0-100) Lipase 23 U/L (12-53) Creatine Kinase 16 U/L (34-145) Other Laboratory Tests 12/08/24 03:21 Brief Hx & Hospital Course: istory of Present Illness Spring Mars is a 64-year-old female with past medical history of hypertension, hyperlipidemia, CVA with left-sided weakness, ovarian cancer, lung cancer with right lobectomy in 2020 of May who presents to the ED with generalized weakness, hypotension, abdominal pain, and diarrhea. Patient reports that she finished her course of vancomycin p.o. for her C diff. Per RN at bedside, patient's spouse stated that they had given her blood pressure medications but did not check her blood pressure prior to her taking the medications. Patient denies any chest pain, shortness of breath, fever, chills, urinary symptoms, recent sick contacts, recent ingestion of spoiled food, or recent travels. Patient states that she was having diarrhea but resolved. Course of hospitalization: Patient is C diff testing came back positive. While in the hospital patient had multiple loose stools. Patient was started on vancomycin 500 mg p.o. 4 times a day, as well as Florastor 250 mg p.o. twice a day, as well as IV Flagyl 500 mg t.i.d.. Patient was weaned off of Levophed after having appropriate IV replete. Patient also had her electrolytes repleted as well. White blood cell count is now normal. Stools are beginning to have more bulk to them, as well as having decreased frequency. Patient was now stable to be transferred to [facility]. This was discussed with the patient was well as her . All questions were answered. Physical examination General: Alert and Oriented x3. No acute distress. Well-nourished. Eyes: EOMI. Anicteric. HENT: Moist mucous membranes. Lungs: Clear to auscultation bilaterally. No accessory muscle use. Cardiovascular: Regular rate and rhythm. No murmur. No JVD. Abdomen: Soft, non-tender and non-distended. No palpable masses. Extremities: No edema. Non-tender. Skin: No rashes or lesions. Warm. Neurologic: No focal neurological deficits. CN II-XII grossly intact, but not individually tested. Psychiatric: Cooperative. Appropriate mood and affect. Total time spent with patient discussing and formulating plan of care: 35 minutes. This medical document was created using an electronic medical record system with [employer] dictation system. Although this document has been carefully reviewed, there may still be some phonetic and typographical errors. These areas are purely typographical due to imperfections of the software programs, and do not reflect any compromise in the patient's medical care. Condition at Discharge: Fair Final Diagnosis/Problems List Sepsis secondary to C diff Secondary diagnosis: -sepsis secondary to C diff colitis -septic shock -paroxysmal atrial fibrillation -history of CVA with current anticoagulation with Coumadin -history of lung cancer -dyslipidemia -acute hypoxic respiratory failure -hypomagnesemia -hypokalemia Discharge Disposition: Home Discharge Instruct/Medications Diet: Consistent carbohydrate Activity: No Restrictions, As Tolerated Follow Up/Referral: Per accepting provider Medications: Refer to medication reconciliation form 36 Discharge Statement: "Patient was advised to return to the ER or call 911 if any headaches, dizziness, shortness of breath, chest pain, abdominal pain, bleeding, fevers, or worsening of medical condition. Patient was counseled about treatment plan, medications, possible side effects, patientverbalized understanding. All questions were answered to the best of my ability. This discharge took greater then 30 minutes in planning, reviewing documentation, counseling the patient, and discussing with other team members." ASSESSMENT ASSESSMENT Assessment Sepsis secondary to C diff Date of Service: Dec 08, 2024 Billing Provider: SHAHIDA ROSS NP Common Visit Codes: 83527-XQU/[id number] DISCH DAY >30min SHAHIDA ROSS NP Dec 08, 2024 15:50
[2024-12-08] MEDS: WARFARIN SODIUM 2 MG TAB PO ONE (17:29)
[2024-12-09 01:00] VITALS: BP 137/80; PULSE 83; RESP 17; TEMP 97.5; O2SAT 97
[2024-12-09 05:00] VITALS: BP 146/83; PULSE 81; RESP 17; TEMP 98.4; O2SAT 95
[2024-12-09 05:43] LABS: Basophils # (auto) 0 10 ^3/uL (0-0.2); Basophils % (auto) 0.6 % (0.0-2.0); Eosinophils # (auto) 0.2 10 ^3/uL (0-0.8); Eosinophils % (auto) 2.7 % (0.0-7.0); Hematocrit 33.8 % (36.0-46.0); Hemoglobin 11.4 g/dL (12.2-16.2); Lymphocytes # (auto) 1.7 10 ^3/uL (0.4-5.4); Lymphocytes % (auto) 23.2 % (10.0-50.0); Mean Corpuscular Hemoglobin 30.6 pg (28.0-32.0); Mean Corpuscular Hgb Conc. 33.8 g/dL (32.0-36.0); Mean Corpuscular Volume 90.6 fL (80.0-100.0); Monocytes # (auto) 0.9 10 ^3/uL (0-1.3); Monocytes % (auto) 12.2 % (0.0-12.0); Neutrophils # (auto) 4.5 10 ^3/uL (1.6-8.6); Neutrophils % (auto) 61.3 % (37.0-80.0); Nucleated Red Blood Cells % 0.1 %; Platelet Count (auto) 266 10^3/uL (140-450); Red Blood Cells 3.73 10^6/uL (4.0-5.20); Red Cell Distribution Width 16.9 % (11.8-14.3); White Blood Cell 7.4 10^3/uL (4.4-10.8)
[2024-12-09 05:57] LABS: INR 2.59 (0.9-1.15); Partial Thromboplastin Time 54.7 SEC (24.5-34.5)
[2024-12-09 08:00] VITALS: PULSE 88; PULSE 94; RESP 16; O2SAT 94
[2024-12-09 09:35] VITALS: BP 116/63; PULSE 94; RESP 17; TEMP 98.4; O2SAT 97
[2024-12-09] MEDS ORDERED: VANC125C3 PO (12:32)
[2024-12-09] MEDS ORDERED: SACC250C PO (12:32)
[2024-12-09 13:48] VITALS: BP 112/53; PULSE 90; RESP 17; TEMP 97.8; O2SAT 97
[2024-12-09 14:16] VITALS: BP 112/53; PULSE 93; RESP 17; TEMP 97.8; O2SAT 97
[2024-12-09] MEDS: WARFARIN SODIUM 1 MG TAB PO ONE (17:10)
== END 2024-12-09 16:45 | disposition home or self-care (01) | DRG 871 ==
LOC: EDBD 03:09 → ER 03:09 → OVERFLOW 10:23 → ICU WEST 14:46 → TELE-EAST 12-08 04:40
PROVIDERS: ADMIT Nurse Practitioner Acute Care; ATTEND Nurse Practitioner Acute Care
PROC: 05HB33Z Insertion of Infusion Device into Right Basilic Vein, Percutaneous Approach (ICD-10-PCS; principal; 2024-12-06)
PROC: B54MZZA Ultrasonography of Right Upper Extremity Veins, Guidance (ICD-10-PCS; 2024-12-06)
DX: A41.89 Other specified sepsis (principal); J96.01 Acute respiratory failure with hypoxia; R57.1 Hypovolemic shock; R65.21 Severe sepsis with septic shock; A04.72 Enterocolitis due to Clostridium difficile, not specified as recurrent; I69.354 Hemiplegia and hemiparesis following cerebral infarction affecting left non-dominant side; Z20.822 Contact with and (suspected) exposure to COVID-19; D64.9 Anemia, unspecified; E87.6 Hypokalemia; K59.00 Constipation, unspecified; K44.9 Diaphragmatic hernia without obstruction or gangrene; I10 Essential (primary) hypertension; E78.5 Hyperlipidemia, unspecified; E83.42 Hypomagnesemia; I95.9 Hypotension, unspecified; I48.0 Paroxysmal atrial fibrillation; Z85.43 Personal history of malignant neoplasm of ovary; Z85.118 Personal history of other malignant neoplasm of bronchus and lung; Z79.899 Other long term (current) drug therapy
CPT/HCPCS: 36415; 71045; 74177; 80048; 80053; 81001; 82550; 82565; 83605; 83690; 83735; 83880; 84132; 84484; 85025; 85610; 85730; 87081; 87086; 87426; 87493; 87804; 93005; 96365; G0378; J1885; J2543; J3490